=== PATIENT | male | born 1990 | race African-American/Black ===

== ENCOUNTER 2018-05-09 02:49 | Emergency (ER) | payer OTHER ==
[~2018-05-09] VITALS: Ht 180.3 cm; Wt 79.2 kg
[~2018-05-09 02:49] MED LIST: BACTRIM,SEPT1 TABLET PO; DAY TIME COLD-237 ML PO; DOXYCYCLINE HY100 M3 PO; MEDROL DOSEPAK4 MG PO; NORCO 5/3251 TABLET PO
[2018-05-09] MEDS ORDERED: ZOFRAN ODT4 MG PO (04:45)
[2018-05-09 04:53] VITALS: BP 120/86
== END 2018-05-09 04:54 | disposition home or self-care (01) ==
LOC: EME 02:49
DX: F10.129 Alcohol abuse with intoxication, unspecified (principal); R11.2 Nausea with vomiting, unspecified; F17.200 Nicotine dependence, unspecified, uncomplicated
CPT/HCPCS: 99281; 99283; J2405